=== PATIENT | male | born 1950 | race Caucasian/White ===

== ENCOUNTER → 2016-06-23 | Outpatient (CLI) | payer OTHER ==
[~2016-06-23] MED LIST: ATOR20TA PO; CELE200C OR; OMEP20CA5 OR; PLAVIX; TRAM50TA2 PO
== END | disposition home or self-care (01) ==
LOC: Rad HDHVI 08:26
PROVIDERS: ATTEND Internal Medicine Cardiovascular Disease
DX: I70.203 Unspecified atherosclerosis of native arteries of extremities, bilateral legs (principal); M79.605 Pain in left leg; I73.89 Other specified peripheral vascular diseases
CPT/HCPCS: 93926

== ENCOUNTER 2016-06-30 14:03 | Emergency (ER) | payer OTHER ==
[~2016-06-30] VITALS: Ht 167.6 cm; Wt 87.5 kg
[2016-06-30 15:28] VITALS: BP 159/99
[2016-06-30] MEDS ORDERED: LIDOCAINE 1% HCL (LOCAL ANESTH.) INJ 20ML MDV IJ ONE (16:00)
[2016-06-30] MEDS ORDERED: NEOMYCIN-BACITRACIN-POLYM UNITDOSE PKG TOP OINT TOP ONE (16:00)
[2016-06-30] MEDS ORDERED: TETANUS-DIPTH-ACEL PERTUSSIS 0.5ML SYRG IM ONE (16:00)
== END 2016-06-30 17:35 | disposition home or self-care (01) ==
LOC: ER 14:08
DX: S63.287A Dislocation of proximal interphalangeal joint of left little finger, initial encounter (principal); S61.217A Laceration without foreign body of left little finger without damage to nail, initial encounter; Z79.02 Long term (current) use of antithrombotics/antiplatelets; M19.90 Unspecified osteoarthritis, unspecified site; Z86.718 Personal history of other venous thrombosis and embolism; Z23 Encounter for immunization; W01.0XXA Fall on same level from slipping, tripping and stumbling without subsequent striking against object, initial encounter; Y93.89 Activity, other specified; Y99.8 Other external cause status; Y92.098 Other place in other non-institutional residence as the place of occurrence of the external cause
CPT/HCPCS: 12002; 26770; 73140; 90471; 90715; 99284; J2001

== ENCOUNTER 2016-07-03 08:45 | Emergency (ER) | payer OTHER ==
[~2016-07-03] VITALS: Ht 167.6 cm; Wt 87.5 kg
[2016-07-03 09:30] VITALS: BP 141/81
== END 2016-07-03 10:48 | disposition home or self-care (01) ==
LOC: ER 08:54
DX: S61.217D Laceration without foreign body of left little finger without damage to nail, subsequent encounter (principal); Z48.01 Encounter for change or removal of surgical wound dressing

== ENCOUNTER → 2016-08-25 | Outpatient (CLI) | payer OTHER ==
[~2016-08-25] VITALS: Ht 170.2 cm; Wt 83.5 kg
[2016-08-25 10:10] VITALS: BP 149/78
[2016-08-25 10:40] VITALS: BP 149/84
[2016-08-25 12:40] LABS: Basophils # (auto) 0 uL; Basophils % (auto) 0.7 % (0.0-2.0); DEFINITIVE VIEW TRANSMISSION; Eosinophils # (auto) 0.1 uL; Eosinophils % (auto) 1.5 % (0.0-7.0); Hemoglobin 13.4 g/dL (13.5-17.5); Lymphocytes # (auto) 1.8 uL; Lymphocytes % (auto) 25.5 % (10.0-50.0); Mean Corpuscular Hemoglobin 19.6 pg (28.0-32.0); Mean Corpuscular Hgb Conc. 31.1 g/dL (32.0-36.0); Mean Corpuscular Volume 63.1 fL (80.0-100.0); Monocytes # (auto) 0.6 uL; Neutrophils # (auto) 4.5 uL; Neutrophils % (auto) 64.3 % (37.0-80.0); Platelet Count (auto) 309 10^3/uL (140-450); White Blood Cell 6.9 10^3/uL (4.4-10.8)
[2016-08-25 13:01] LABS: INR 1.01 (0.9-1.15); Prothrombin Time 10.9 sec (9.37-12.3)
[2016-08-25 13:13] LABS: BUN/Creatinine Ratio 18.3; Potassium 4.1 mmol/L (3.5-5.1)
[2016-08-25 15:04] LABS: Microcytosis Marked; Platelet Estimate Adequate
[2016-08-25 15:06] LABS: Hypochromia Moderate; Ovalocytes FEW; Tear Drop Cells FEW
== END | disposition home or self-care (01) ==
LOC: Rad HDHVI 09:58
PROVIDERS: ATTEND Internal Medicine Cardiovascular Disease
DX: I10 Essential (primary) hypertension (principal); D64.9 Anemia, unspecified; R79.1 Abnormal coagulation profile
CPT/HCPCS: 36415; 71020; 80048; 85025; 85610; 85730; 93005; G0463

== ENCOUNTER 2016-08-27 06:59 | Day surgery (SDC) | payer OTHER ==
[2016-08-27] MEDS ORDERED: IOHEXOL 350 MG/ML 100ML IJ ONE (07:02)
[2016-08-27] MEDS ORDERED: LIDOCAINE 2%HCL (LOCAL ANESTH.) INJ 20ML MDV ONE (07:02)
[2016-08-27] MEDS ORDERED: fentaNYL CITRATE 100 MCG/2 ML VL ONE (07:43)
[2016-08-27] MEDS ORDERED: MIDAZOLAM HCL 1MG/1ML-2 ML VIAL ONE (07:43)
[2016-08-27] MEDS ORDERED: SODIUM CHL 0.9% 0 ML ONE (07:44)
[2016-08-27] MEDS ORDERED: ANGIOMAX 250 MG VIAL IV ONE (07:44)
== END 2016-08-27 10:45 | disposition home or self-care (01) ==
LOC: CATH 06:59
PROVIDERS: ATTEND Internal Medicine Cardiovascular Disease
DX: I73.9 Peripheral vascular disease, unspecified (principal); I10 Essential (primary) hypertension; E78.5 Hyperlipidemia, unspecified; Z87.891 Personal history of nicotine dependence
CPT/HCPCS: 36246; C1760; C1769; C1894; J1644; J2250; J3010; Q9967

== ENCOUNTER → 2016-10-07 | Outpatient (CLI) | payer OTHER ==
[2016-10-07 09:31] LABS: Cholesterol 101 mg/dL (< 200); HDL Cholesterol 31 mg/dL (40-59); LDL Cholesterol 62 mg/dL (< 100); Triglycerides 112 mg/dL (< 150)
== END | disposition home or self-care (01) ==
LOC: LAB 08:30
DX: Z12.11 Encounter for screening for malignant neoplasm of colon (principal); Z12.5 Encounter for screening for malignant neoplasm of prostate; R73.9 Hyperglycemia, unspecified; E78.5 Hyperlipidemia, unspecified
CPT/HCPCS: 36415; 80061; 82270; 83036; 84153

== ENCOUNTER → 2017-05-04 | Outpatient (CLI) | payer OTHER ==
[~2017-05-04] MED LIST changes: -OMEP20CA5 OR; +OMEP20CA74 OR
[2017-05-04 10:00] LABS: Urine Bilirubin Negative (Negative); Urine Blood Negative /uL (Negative); Urine Color Yellow (Yellow); Urine Glucose Normal (Normal); Urine Ketone Negative (Negative); Urine Mucus FEW (None Seen); Urine Nitrite Negative (Negative); Urine RBC <1 /hpf (0 - 3); Urine Urobilinogen Normal (Negative); Urine pH 5.5 (5.0-8.0)
[2017-05-04 10:13] LABS: BUN/Creatinine Ratio 14.9; Bilirubin, Total 0.6 mg/dL (0.2-1.0); Calcium 9.1 mg/dL (8.5-10.1); Potassium 4.3 mmol/L (3.5-5.1); Total Protein 8.2 g/dL (6.4-8.2)
[2017-05-04 10:26] LABS: Basophils # (auto) 0.1 uL; Eosinophils # (auto) 0.1 uL; Hemoglobin 13.9 g/dL (13.5-17.5); Lymphocytes # (auto) 1.7 uL; Monocytes # (auto) 0.6 uL; Monocytes % (auto) 7.7 % (0.0-12.0); Nucleated Red Blood Cells % 0.1 %
[2017-05-04 10:28] LABS: Basophils % (auto) 1.2 % (0.0-2.0); Eosinophils % (auto) 1.8 % (0.0-7.0); Hematocrit 44.1 % (41.0-53.0); Lymphocytes % (auto) 21.3 % (10.0-50.0); Mean Corpuscular Hemoglobin 19.9 pg (28.0-32.0); Mean Corpuscular Hgb Conc. 31.5 g/dL (32.0-36.0); Mean Platelet Volume 8.6 fL (6.9-10.8); Neutrophils # (auto) 5.5 uL; Platelet Count (auto) 323 10^3/uL (140-450); Red Cell Distribution Width 16.4 % (11.8-14.3); White Blood Cell 8.1 10^3/uL (4.4-10.8)
[2017-05-04 10:36] LABS: Hypochromia Marked; Microcytosis Marked; Ovalocytes FEW; Platelet Estimate Adequate
== END | disposition home or self-care (01) ==
LOC: LAB 08:45
PROVIDERS: ATTEND Internal Medicine
DX: E78.00 Pure hypercholesterolemia, unspecified (principal)
CPT/HCPCS: 36415; 80053; 80061; 81001; 84153; 84439; 84443; 85025; 85652

== ENCOUNTER → 2017-08-30 | Outpatient (CLI) | payer OTHER ==
[2017-08-30 10:05] LABS: Basophils # (auto) 0.1 uL; Hemoglobin 13.2 g/dL (13.5-17.5); Nucleated Red Blood Cells % 0.1 %; White Blood Cell 8.8 10^3/uL (4.4-10.8)
[2017-08-30 10:06] LABS: Basophils % (auto) 1.1 % (0.0-2.0); Eosinophils # (auto) 0.1 uL; Eosinophils % (auto) 1.6 % (0.0-7.0); Hematocrit 41.5 % (41.0-53.0); Lymphocytes % (auto) 22.8 % (10.0-50.0); Mean Corpuscular Hemoglobin 20.2 pg (28.0-32.0); Mean Corpuscular Hgb Conc. 31.8 g/dL (32.0-36.0); Mean Corpuscular Volume 63.6 fL (80.0-100.0); Monocytes # (auto) 0.6 uL; Monocytes % (auto) 6.8 % (0.0-12.0); Neutrophils % (auto) 67.7 % (37.0-80.0); Platelet Count (auto) 383 10^3/uL (140-450); Red Blood Cells 6.52 10^6/uL (4.5-5.90); Red Cell Distribution Width 17.1 % (11.8-14.3)
[2017-08-30 10:23] LABS: INR 1.03 (0.9-1.15); Partial Thromboplastin Time 28.6 sec (22.64-33.71); Prothrombin Time 11.2 sec (9.37-12.3)
== END | disposition home or self-care (01) ==
LOC: LAB 09:46
PROVIDERS: ATTEND Internal Medicine
DX: R04.0 Epistaxis (principal); J30.9 Allergic rhinitis, unspecified; E78.00 Pure hypercholesterolemia, unspecified; E78.5 Hyperlipidemia, unspecified; I12.9 Hypertensive chronic kidney disease with stage 1 through stage 4 chronic kidney disease, or unspecified chronic kidney disease; N18.1 Chronic kidney disease, stage 1; Z87.891 Personal history of nicotine dependence
CPT/HCPCS: 36415; 84439; 84443; 85025; 85610; 85652; 85730

== ENCOUNTER → 2018-06-01 | Outpatient (CLI) | payer OTHER ==
[2018-06-01 08:55] LABS: Basophils # (auto) 0.1 uL; Lymphocytes # (auto) 1.7 uL; Mean Corpuscular Volume 64.1 fL (80.0-100.0); Red Cell Distribution Width 16.3 % (11.8-14.3)
[2018-06-01 09:01] LABS: Basophils % (auto) 1.1 % (0.0-2.0); Eosinophils # (auto) 0.1 uL; Eosinophils % (auto) 1.9 % (0.0-7.0); Hematocrit 44.3 % (41.0-53.0); Lymphocytes % (auto) 22.5 % (10.0-50.0); Mean Corpuscular Hemoglobin 20.3 pg (28.0-32.0); Mean Corpuscular Hgb Conc. 31.7 g/dL (32.0-36.0); Monocytes # (auto) 0.6 uL; Monocytes % (auto) 8.2 % (0.0-12.0); Neutrophils # (auto) 4.9 uL; Neutrophils % (auto) 66.3 % (37.0-80.0); Nucleated Red Blood Cells % 0.2 %; Platelet Count (auto) 327 10^3/uL (140-450); White Blood Cell 7.5 10^3/uL (4.4-10.8)
[2018-06-01 09:11] LABS: Calcium 8.9 mg/dL (8.5-10.1); Potassium 4.4 mmol/L (3.5-5.1)
[2018-06-01 09:17] LABS: Albumin 3.9 g/dL (3.4-5.0); BUN/Creatinine Ratio 13.5; Bilirubin, Total 0.6 mg/dL (0.2-1.0)
[2018-06-01 09:18] LABS: Free T4 (Free Thyroxine) 1.08 ng/dL (0.89-1.76)
[2018-06-01 09:19] LABS: Prostate Specific Antigen 0.85 ng/mL (0.0-4.0)
== END | disposition home or self-care (01) ==
LOC: LAB 08:24
PROVIDERS: ATTEND Internal Medicine
DX: I73.9 Peripheral vascular disease, unspecified (principal); R35.1 Nocturia
CPT/HCPCS: 36415; 80053; 80061; 82043; 82785; 83036; 84153; 84439; 84443; 85025; 85652